=== PATIENT | female | born 1995 | race Caucasian/White ===

== ENCOUNTER 2016-09-21 14:35 | Emergency (ER) | payer OTHER ==
[2016-09-21] MEDS ORDERED: Morphine INJ* 2 MG/ML 1 ML CARPUJECT IV ONE (15:37)
[2016-09-21] MEDS ORDERED: NS 0.9% 1000 ML* 1,000 ML IV ONE (15:37)
[2016-09-21 15:50] LABS: Urine Bilirubin Negative (Negative); Urine Glucose Negative (Negative); Urine Nitrite Negative (Negative)
--- NOTE | 2016-09-21 16:05 | ED ---
Abdominal Pain/Female - HPI Summary HPI Summary: Patient arrives to ED 1 week after IUD placement with CC of intermittent lower abdominal cramping at 8/10. She states immediatley after placement she felt cramping and pain for 1 day. This dissipated by day 2 and patient resumed normal activities. She states she experienced 5 days of bleeding which seemed normal for her without pain or discomfort. Today, she arrives with severe cramps similar to the first day after IUD placement, but notes they are much worse. She denies STD history, current sexual history, abnormal vaginal discharge, fever or otherwise feeling ill. Patient has felt strings. This is her first IUD placement. Denies chance of . Denies any urinary symptoms or back pain. She is otherwise healthy, allergy to penicillins and takes no medications. She has a follow up appt with her OB 6 weeks from now, but states the earliest she can get in wouldn't be until 2 weeks d/t OB on vacation. - History of Current Complaint Chief Complaint: EDUrogenitalProblems Stated Complaint: IUD ISSUE / PELVIC PAIN Time Seen by Provider: 09/21/16 15:16 Hx Obtained From: Patient Hx Last Menstrual Period: 09/07/16 ?: No Onset/Duration: Sudden Onset Timing: Intermittent Episode Lasting - several minutes Severity Initially: Moderate Severity Currently: Severe Pain Intensity: 5 Pain Scale Used: 0-10 Numeric Location: Suprapubic Radiates: No Character: Sharp, Cramping Aggravating Factor(s): Nothing Alleviating Factor(s): Other: - movement Associated Signs and Symptoms: Positive: Vaginal Bleeding - previously, but this has since stopped - Risk Factors Ectopic Risk Factor: IUD Use Ovarian Torsion Risk Factor: Reproductive Age Allergies/Adverse Reactions: Allergies Allergy/AdvReac Type Severity Reaction Status Date / Time Penicillins Allergy See Comment Verified 02/03/15 16:36 PMH/Surg Hx/FS Hx/Imm Hx Previously Healthy: Yes Infectious Disease History: No Infectious Disease History: Denies: History Other Infectious Disease, Traveled Outside the [place] in Last 30 Days - Social History Occupation: Student Lives: With Family Alcohol Use: None Hx Substance Use: No Substance Use Type: Reports: None Hx Tobacco Use: No Smoking Status (MU): Never Smoked Tobacco Do You Chew or Dip Tobacco: No Have You Chewed or Dipped Tobacco in the LAST YEAR: No Review of Systems Constitutional: Negative Positive: Photophobia Cardiovascular: Negative Respiratory: Negative Positive: Abdominal Pain - suprapubic Positive: no symptoms reported, see HPI Musculoskeletal: Negative Skin: Negative Neurological: Negative All Other Systems Reviewed And Are Negative: Yes Physical Exam Triage Information Reviewed: Yes Vital Signs On Initial Exam: Initial Vitals Temp Pulse Resp BP Pulse Ox 98.4 F 74 12 127/87 100 09/21/16 14:36 09/21/16 14:36 09/21/16 14:36 09/21/16 14:36 09/21/16 14:36 Vital Signs Reviewed: Yes Appearance: Positive: Well-Appearing, No Pain Distress, Well-Nourished Skin: Positive: Warm, Skin Color Reflects Adequate Perfusion Eyes: Positive: Normal, EOMI Neck: Positive: Supple, Nontender, No Lymphadenopathy Respiratory/Lung Sounds: Positive: Clear to Auscultation, Breath Sounds Present Cardiovascular: Positive: Normal, RRR Abdomen Description: Positive: Other: - patient experienced severe sharp pain approximately 20 seconds after provider lightly palpated LLQ. while palpating, patient notes to "some discomfort," this only became severe after exam was finished. Pain was discrete at LLQ which did not radiate. Bowel Sounds: Positive: Present Musculoskeletal: Positive: Normal, Strength/ROM Intact Neurological: Positive: Sensory/Motor Intact, Alert, Oriented to Person Place, Time, Speech Normal Psychiatric: Positive: Normal, Affect/Mood Appropriate AVPU Assessment: Alert - Ale Coma Scale Best Eye Response: 4 - Spontaneous Best Motor Response: 6 - Obeys Commands Best Verbal Response: 5 - Oriented Coma Scale Total: 15 Diagnostics - Vital Signs Vital Signs Temp Pulse Resp BP Pulse Ox 09/21/16 15:19 97.9 F 69 21 109/60 98 09/21/16 14:36 98.4 F 74 12 127/87 100 - Laboratory Lab Results: Lab Results 09/21/16 Range/Units 15:20 Urine Color Yellow Urine Appearance Clear Urine pH 7.0 (5-9) Ur Specific [place] 1.009 L (1.010-1.030) Urine Protein Negative (Negative) Urine Ketones Negative (Negative) Urine Blood Negative (Negative) Urine Nitrate Negative (Negative) Urine Bilirubin Negative (Negative) Urine Urobilinogen Negative (Negative) Ur Leukocyte Esterase Negative (Negative) Urine Glucose Negative (Negative) Result Diagrams: 09/21/16 16:15 09/21/16 16:15 Lab Statement: Any lab studies that have been ordered have been reviewed, and results considered in the medical decision making process. Abdominal Pain Fem Course/Dx - Course Course Of Treatment: Patient arrives with moderate cramping 1 week after IUD placement. US revealed Mirena in appropriate place. UA was negative for infection. All labs WNL. No fever. Explained to patient cramping is very common with recent IUD placement and should be evaluated 6 weeks after insertion. Patient has follow up with OBGYN in 6 already scheduled. Explained possibility of PID. She notes she has no vaginal discharge, bleeding, odor or experiencing in fever. Provider ordered morphine for pain, mother called and stated she did not want patient to have morphine and to give her ibuprofen instead. Provider again spoke with patient, and d/t her age, it was my clinical decision making and the patients preference to have the medication. Patient agreed to toradol. Will follow up with OB. Ibuprofen as outpatient for pain control per patient. - Diagnoses Differential Diagnosis: Positive: Ectopic , Ovarian Cyst, Pelvic Inflammatory Disease, Urinary Tract Infection, Other - IUD complications Provider Diagnoses: Pain due to intrauterine contraceptive device (IUD) Images - Images Full Body (No Head): 1 - 10/10 pain on light palpation Discharge - Discharge Plan Condition: Stable Disposition: HOME Patient Education Materials: Intrauterine Device (GEN) Referrals: No Primary Care Phys,NOPCP [Primary Care Provider] - Additional Instructions: Take 600mg Iburprofen 3 times daily with meals for pain and inflammation. Follow up with your OBGYN. Call tomorrow and explain you were seen in ED. Ultrasound shows IUD in place. Cramping is very common after IUD placement. If you notice any worsening cramping, bleeding or develop a fever. Come back to ED.
[2016-09-21 16:31] LABS: Hematocrit 41 % (35-47); Hemoglobin 13.5 g/dl (12.0-16.0); Mean Corpuscular HGB Conc 34 g/dl (31-36); Mean Corpuscular Hemoglobin 28 pg (27-31); Mean Corpuscular Volume 83 fL (80-97); Mean Platelet Volume 7 um3 (7.4-10.4); Red Blood Count 4.91 10^6/ul (4.0-5.4); Red Cell Distribution Width 13 % (10.5-15); White Blood Count 10.3 10^3/ul (3.5-10.8)
[2016-09-21 16:59] LABS: ALT 10 U/L (7-52); AST 16 U/L (13-39); Albumin 4.3 g/dL (3.2-5.2); Alkaline Phosphatase 63 U/L (34-104); Anion Gap 3 mmol/L (2-11); BUN/Creatinine Ratio 15.9 (8-20); Blood Urea Nitrogen 11 mg/dL (6-24); C Reactive Protein 1.63 mg/L (< 5.00); CO2 Carbon Dioxide 28 mmol/L (22-32); Calcium 9.2 mg/dL (8.6-10.3); Chloride 104 mmol/L (101-111); Creatine Kinase 87 U/L (10-223); EGFR African American 138.1 (>60); EGFR Non-African American 107.4 (>60); Globulin 2.6 g/dL (2-4); Glucose 90 mg/dL (70-100); Potassium 3.6 mmol/L (3.5-5.0); Sodium 135 mmol/L (133-145); Total Protein 6.9 g/dL (6.4-8.9)
[2016-09-21] MEDS ORDERED: Ketorolac INJ* 30 MG/ML 1 ML VIAL IV PUSH ONE (17:08)
--- NOTE | 2016-09-21 17:38 | RAD ---
INDICATION: Intermittent left-sided pelvic pain one week after IUD placement COMPARISON: None. TECHNIQUE: Real-time transabdominal and transvaginal ultrasound examination of the female pelvis including grayscale and Doppler color flow imaging. FINDINGS: Uterus: The uterus is normal in size and echogenicity measuring 7.9 x 3.8 x 4.2 cm. The endometrial stripe is smooth and uniform measuring 1 cm in thickness. In the sagittal projection the lower shaft of the intrauterine device is appropriately positioned in the fundal height endometrium. There is more questionable identification of the "arms" of the intrauterine device positioned within the cornua. There is no definite evidence of perforation. Ovaries: The right and left ovary measure 3.7 x 2.3 x 2.3 cm and 2.8 x 1.5 x 1.9 cm, respectively. Normal arterial and venous waveforms are identified. Appearance is within normal limits for the patient's age. There is no free fluid in the cul-de-sac. IMPRESSION: No evidence of malposition or uterine perforation by the patient's intrauterine device in this otherwise normal and age-appropriate pelvic ultrasound.
[2016-09-21 18:25] VITALS: BP 115/73
== END 2016-09-21 18:19 | disposition home or self-care (01) ==
LOC: ED 14:35
DX: R10.30 Lower abdominal pain, unspecified (principal); H53.149 Visual discomfort, unspecified; Z97.5 Presence of (intrauterine) contraceptive device
CPT/HCPCS: 36415; 76830; 80053; 81003; 82550; 84702; 85025; 86140; 87491; 87591; 96361; 96374; 96375; 99283; J1885

== ENCOUNTER 2017-04-18 09:20 | Emergency (ER) | payer SELFPAY ==
[2017-04-18 10:02] VITALS: BP 105/68
--- NOTE | 2017-04-18 10:16 | UC ---
Throat Pain/Nasal Deo HPI - HPI Summary HPI Summary: Sore throat for 1 day - History of Current Complaint Chief Complaint: UCGeneralIllness Stated Complaint: SORE THROAT Time Seen by Provider: 04/18/17 10:15 Hx Obtained From: Patient Hx Last Menstrual Period: 03/28/17 ?: No Onset/Duration: Sudden Onset, Lasting Days - 1 Severity: Moderate Pain Intensity: 7 Pain Scale Used: 0-10 Numeric Cough: None - Allergies/Home Medications Allergies/Adverse Reactions: Allergies Allergy/AdvReac Type Severity Reaction Status Date / Time No Known Allergies Allergy Verified 04/18/17 09:53 PMH/Surg Hx/FS Hx/Imm Hx Previously Healthy: Yes - Surgical History Surgical History: None - Family History Known Family History: Positive: None - Social History Occupation: Employed Full-time Lives: With Family Alcohol Use: None Substance Use Type: None Smoking Status (MU): Never Smoked Tobacco Review of Systems Constitutional: Negative Skin: Negative Eyes: Negative ENT: Sore Throat, Ear Ache - right Respiratory: Negative Cardiovascular: Negative Gastrointestinal: Negative Genitourinary: Negative Motor: Negative Neurovascular: Negative Musculoskeletal: Negative Neurological: Negative Psychological: Negative Is Patient Immunocompromised?: No All Other Systems Reviewed And Are Negative: Yes Physical Exam Triage Information Reviewed: Yes Appearance: Well-Nourished, Ill-Appearing - mild, Pain Distress - mild Vital Signs: Initial Vital Signs Temp 98.5 F 04/18/17 09:53 Pulse 95 04/18/17 09:53 Resp 20 04/18/17 09:53 BP 105/68 04/18/17 09:53 Pulse Ox 100 04/18/17 09:53 Vital Signs Reviewed: Yes Eye Exam: Normal Eyes: Positive: Conjunctiva Clear ENT Exam: Normal ENT: Positive: Normal ENT inspection, Hearing grossly normal, Pharyngeal erythema, TMs normal. Negative: Nasal congestion, Nasal drainage, Tonsillar swelling, Tonsillar exudate, Trismus, Muffled/hoarse voice Dental Exam: Normal Neck exam: Normal Neck: Positive: Supple, Nontender, No Lymphadenopathy Respiratory Exam: Normal Respiratory: Positive: Chest non-tender, Lungs clear, Normal breath sounds, No respiratory distress, No accessory muscle use Cardiovascular Exam: Normal Cardiovascular: Positive: RRR, No Murmur, Pulses Normal, Brisk Capillary Refill Musculoskeletal Exam: Normal Musculoskeletal: Positive: Strength Intact, ROM Intact, No Edema Neurological Exam: Normal Neurological: Positive: Alert, Muscle Tone Normal Psychological Exam: Normal Skin Exam: Normal Diagnostics - Laboratory Diagnostic Studies Completed/Ordered: RST (+) Throat Pain/Nasal Course/Dx - Course Assessment/Plan: Amoxicillin, tylenol, ibuprofen follow with pcp prn, - Differential Dx/Diagnosis Differential Diagnosis/HQI/PQRI: Laryngitis, Mononucleosis, Pharyngitis, Sinusitis, URI Provider Diagnoses: Strep Pharyngitis Discharge - Discharge Plan Condition: Stable Disposition: HOME Prescriptions: Amoxicillin PO (*) [Amoxicillin 500 MG CAP*] 500 mg PO TID #30 cap Patient Education Materials: Strep Throat (ED), Ibuprofen (By mouth), Acetaminophen (By mouth) Forms: *Work Release Referrals: [facility] [place] [facility] [Outside] - If Needed
== END 2017-04-18 10:39 | disposition home or self-care (01) ==
LOC: UCEAST 09:20
DX: J02.0 Streptococcal pharyngitis (principal)
CPT/HCPCS: 87651; 99212; G0463

== ENCOUNTER 2019-07-03 11:20 | Emergency (ER) | payer BC ==
[2019-07-03 12:16] VITALS: BP 117/80
--- NOTE | 2019-07-03 12:31 | UC ---
Throat Pain/Nasal Deo HPI - HPI Summary HPI Summary: Patient is a 24yo female presenting with sore throat and R ear pain that began this morning. Denies nasal congestion. Denies L ear symptoms. Denies cough. Denies fever but notes "feeling cold." Denies ill contacts. States she took one of her fiance's left over amoxicillin tabs this morning from a previous illness. - History of Current Complaint Chief Complaint: UCGeneralIllness Stated Complaint: ST Hx Obtained From: Patient Hx Last Menstrual Period: 06/27/19 Onset/Duration: Sudden Onset, Lasting Hours Severity: Mild Pain Intensity: 3 Pain Scale Used: 0-10 Numeric - Allergies/Home Medications Allergies/Adverse Reactions: Allergies Allergy/AdvReac Type Severity Reaction Status Date / Time No Known Allergies Allergy Verified 07/03/19 12:16 Home Medications: Home Medications Acetaminophen [Acetaminophen Extra Strength] 1,000 mg PO Q4HR PRN 07/03/19 [ History Confirmed 07/03/19] PMH/Surg Hx/FS Hx/Imm Hx Previously Healthy: Yes - Surgical History Surgical History: None - Family History Known Family History: Positive: None, Non-Contributory - Social History Alcohol Use: Occasionally Substance Use Type: None Smoking Status (MU): Never Smoked Tobacco Review of Systems All Other Systems Reviewed And Are Negative: Yes Constitutional: Positive: Chills. Negative: Fever ENT: Positive: Sore Throat, Ear Ache - R ear. Negative: Nasal Discharge, Sinus Congestion Respiratory: Positive: Negative Cardiovascular: Positive: Negative Gastrointestinal: Positive: Negative Musculoskeletal: Positive: Negative Neurological: Positive: Negative Physical Exam Triage Information Reviewed: Yes Appearance: Well-Appearing, No Pain Distress, Well-Nourished Vital Signs: Initial Vital Signs Temp 99.2 F 07/03/19 12:11 Pulse 91 07/03/19 12:11 Resp 16 07/03/19 12:11 BP 117/80 07/03/19 12:11 Pulse Ox 100 07/03/19 12:11 Vital Signs Reviewed: Yes Eyes: Positive: Conjunctiva Clear ENT: Positive: Hearing grossly normal, Pharyngeal erythema, TMs normal, Tonsillar swelling, Tonsillar exudate - right tonsil, Uvula midline. Negative: Nasal congestion, Nasal drainage, TM bulging, TM dull, TM red, Trismus, Muffled voice, Hoarse voice Neck exam: Normal Neck: Positive: Supple, Nontender, Enlarged Nodes @ - right tonsillar Respiratory Exam: Normal Respiratory: Positive: Lungs clear, Normal breath sounds, No respiratory distress Cardiovascular Exam: Normal Cardiovascular: Positive: RRR Neurological: Positive: Alert Psychological: Positive: Age Appropriate Behavior Skin Exam: Normal Throat Pain/Nasal Course/Dx - Course Course Of Treatment: Patient rapid strep negative. I sent for culture given PE findings. Instructed her to continue with symptomatic treatment and not to take any more amoxicillin. Informed her that she would be notified with any positive results warranting treatment. Instructed to follow up with [facility] if symptoms persist. Patient voiced understanding and agreed with treatment plan. - Differential Dx/Diagnosis Differential Diagnosis/HQI/PQRI: Pharyngitis, Tonsillitis, URI Provider Diagnosis: Exudative pharyngitis, Acute pain of right ear Discharge ED - Sign-Out/Discharge Documenting (check all that apply): Patient Departure All imaging exams completed and their final reports reviewed: No Studies - Discharge Plan Condition: Stable Disposition: HOME Patient Education Materials: Pharyngitis (ED) Referrals: [facility] [Outside] - If Needed [facility] [place] [facility] [Outside] - If Needed Additional Instructions: As discussed, you tested negative for strep throat today. A throat culture has been sent and you will be notified with any results warranting treatment. You may take ibuprofen and/or tylenol as directed for fever and pain relief. You may use over the counter throat sprays or lozenges for symptomatic relief. Get plenty of rest and fluids. Follow up with your primary care provider or one of the referrals listed below if your symptoms do not resolve within 7 days. - Billing Disposition and Condition Condition: STABLE Disposition: Home
== END 2019-07-03 12:50 | disposition home or self-care (01) ==
LOC: UCCORT 11:20
DX: H92.01 Otalgia, right ear (principal); J02.9 Acute pharyngitis, unspecified; R09.81 Nasal congestion
CPT/HCPCS: 87070; 87651; 99211; G0463

== ENCOUNTER 2021-10-25 02:18 | Inpatient (IN) ==
[2021-10-25] MEDS ORDERED: Buffered Lidocaine 1% SYRIN 1 ml INTRADERM ONE ×2 (02:36→03:28)
[2021-10-25 04:23] LABS: Urine Benzodiazepine Screen None Detected (None Detect); Urine Cannabinoids Screen None Detected (None Detect); Urine Opiates Screen None Detected (None Detect)
[2021-10-25] MEDS ORDERED: Nalbuphine 10 MG/ML 1 ML VIAL IV PRN (15:56)
[2021-10-25] MEDS ORDERED: Promethazine INJ(RESTRICTED) 25 MG/ML 1 ml VIAL IV PRN (15:56)
[2021-10-25] MEDS ORDERED: Oxytocin in LR 20 UNITS/1,000 ML BAG IVPB SCH (16:00)
[2021-10-25 16:45] LABS: ABS Lymphocytes 1.7 10^3/ul (1.0-4.8); ABS Neutrophils 7.8 10^3/ul (1.5-7.7); Eosinophil % 0.3 %; Hematocrit 37 % (35-47); Hemoglobin 12.1 g/dL (12.0-16.0); Lymphocyte % 16.4 %; Mean Corpuscular HGB Conc 33 g/dL (31-36); Mean Corpuscular Hemoglobin 26 pg (27-31); Mean Corpuscular Volume 81 fL (80-97); Mean Platelet Volume 7.2 fL (7.4-10.4); Platelet Count 233 10^3/uL (150-450); Red Blood Count 4.59 10^6 /uL (3.70-4.87); Red Cell Distribution Width 16 % (10-15); White Blood Count 10.6 10^3/uL (3.5-10.8)
[2021-10-25] MEDS: Lactated Ringers 1000 ml BAG 1,000 ML IV ONE ×2 (16:55→20:40)
[2021-10-25] MEDS ORDERED: OBEPIDURAL (200 ML) 200 ML EPIDURAL ONE (20:22)
[2021-10-25] MEDS ORDERED: Lactated Ringers 1000 ml BAG 500 ML IV PRN ×2 (21:26)
[2021-10-25] MEDS ORDERED: EPHEDrine (Pressors) 50 MG/ML VIAL IV PUSH PRN ×2 (21:26)
[2021-10-25] MEDS ORDERED: Sodium Citrate/Citric Acid LIQ 15 ML UDC PO PRN (21:26)
[2021-10-25] MEDS ORDERED: Phenylephrine 40 mcg/mL 10mL (400mcg) SYRINGE IV PUSH PRN ×2 (21:26)
[2021-10-25] MEDS ORDERED: Lactated Ringers 1000 ml BAG 1,000 ML IV ONE (21:26)
[2021-10-25] MEDS ORDERED: Lactated Ringers 1000 ml BAG 1,000 ML IV SCH (22:00)
[2021-10-25] MEDS ORDERED: OBEPIDURAL (200 ML) 200 ML EPIDURAL SCH (22:00)
[2021-10-25 22:18] LABS: Urine Appearance Cloudy; Urine Bilirubin Negative (Negative); Urine Blood 3+ (Negative); Urine Color Yellow; Urine Glucose Negative (Negative); Urine Ketones 2+ (Negative); Urine Nitrite Negative (Negative); Urine Protein 2+(100 mg/dL) (Negative); Urine Specific Gravity 1.023 (1.002-1.030); Urine Urobilinogen Negative (Negative)
[2021-10-25 22:20] LABS: Urine Bacteria Absent (Absent); Urine Red Blood Cell 3+(>10/hpf) (Absent); Urine Squamous Epithelial Cell Present (Absent); Urine White Blood Cell 1+(6-10/hpf) (Absent)
[2021-10-25] MEDS ORDERED: Calcium Carb (TUMS) 500 mg CHEW TAB PO PRN (23:32)
[2021-10-26] MEDS ORDERED: Gentamicin ADULT per pharmacy 1 NOTE MISC FOLLOW UP PRN (04:02)
[2021-10-26] MEDS: Ampicillin ADVAN 2 GM in NS 0.9% 100 ml BAG 100 ML IVPB SCH ×4 (04:10→23:22)
[2021-10-26] MEDS ORDERED: Oxytocin in LR 20 UNITS/1,000 ML BAG IVPB SCH (04:24)
[2021-10-26] MEDS ORDERED: Gentamicin ADULT 350 MG in NS 0.9% 100 ml BAG 100 ML IVPB SCH (05:00)
[2021-10-26] MEDS: Witch Hazel PAD JAR TOPICAL PRN (08:00)
[2021-10-26] MEDS: Dibucaine 1% OINT 28.35 GM TUBE PR PRN (08:00)
[2021-10-27 07:19] LABS: ABS Eosinophils 0.1 10^3/ul (0-0.6); ABS Lymphocytes 1.9 10^3/ul (1.0-4.8); ABS Monocytes 0.8 10^3/ul (0-0.8); ABS Neutrophils 7.9 10^3/ul (1.5-7.7); Eosinophil % 0.5 %; Hematocrit 27 % (35-47); Hemoglobin 8.9 g/dL (12.0-16.0); Lymphocyte % 17.7 %; Mean Corpuscular HGB Conc 33 g/dL (31-36); Mean Corpuscular Hemoglobin 27 pg (27-31); Mean Corpuscular Volume 81 fL (80-97); Mean Platelet Volume 7.2 fL (7.4-10.4); Platelet Count 181 10^3/uL (150-450); Red Blood Count 3.34 10^6 /uL (3.70-4.87); Red Cell Distribution Width 17 % (10-15); White Blood Count 10.8 10^3/uL (3.5-10.8)
[2021-10-27] MEDS: Ampicillin ADVAN 2 GM in NS 0.9% 100 ml BAG 100 ML IVPB SCH (07:42)
[2021-10-27 07:52] LABS: eGFR CKD-EPI 124.5 (>60)
[2021-10-27] MEDS: Witch Hazel PAD JAR TOPICAL PRN (08:15)
[2021-10-27] MEDS: Dibucaine 1% OINT 28.35 GM TUBE PR PRN (08:15)
[2021-10-28] MEDS: Dibucaine 1% OINT 28.35 GM TUBE PR PRN (08:34)
[2021-10-28 09:59] VITALS: BP 111/60
== END 2021-10-28 13:45 | disposition home or self-care (01) | DRG 560 ==
LOC: MCHOBOUT 02:18 → MCHOB 02:53
PROVIDERS: ADMIT Advanced Practice Midwife; ATTEND Advanced Practice Midwife

== ENCOUNTER 2023-02-20 13:27 | Inpatient (IN) ==
[2023-02-20] MEDS ORDERED: Lactated Ringers 1000 ml BAG 1,000 ML IV ONE ×2 (14:03→15:46)
[2023-02-20 14:30] LABS: ABS Lymphocytes 1.7 10^3/uL (1.0-4.8); ABS Monocytes 0.8 10^3/uL (0.0-0.9); ABS Neutrophils 9.7 10^3/uL (1.5-7.6); Eosinophil % 0.2 %; Hematocrit 34.9 % (35-45); Hemoglobin 11.9 g/dL (11.5-14.3); Lymphocyte % 14.1 %; Mean Corpuscular Hemoglobin 26.9 pg (27-33); Mean Platelet Volume 7.1 fL (7.5-11.2); Platelet Count 238 10^3/uL (150-450); Red Blood Count 4.41 10^6/uL (3.63-4.92); Red Cell Distribution Width 15.3 % (12-17); White Blood Count 12.3 10^3/uL (3.8-11.8)
[2023-02-20 14:42] LABS: Urine Benzodiazepine Screen None Detected (None Detect); Urine Cannabinoids Screen None Detected (None Detect); Urine Opiates Screen None Detected (None Detect)
[2023-02-20] MEDS ORDERED: OBEPIDURAL (200 ML) 200 ML EPIDURAL ONE (14:55)
[2023-02-20] MEDS ORDERED: Lidocaine 1% w EPI 1:200,000 SDV 30 ML VIAL ONE (14:56)
[2023-02-20] MEDS ORDERED: Phenylephrine 40 mcg/mL 10mL (400mcg) SYRINGE IV PUSH PRN ×2 (15:46)
[2023-02-20] MEDS ORDERED: Sodium Citrate/Citric Acid LIQ 15 ML UDC PO PRN (15:46)
[2023-02-20] MEDS ORDERED: OBEPIDURAL (200 ML) 200 ML EPIDURAL SCH (16:00)
[2023-02-20] MEDS ORDERED: Lactated Ringers 1000 ml BAG 1,000 ML IV SCH ×2 (16:00→21:00)
[2023-02-20 17:03] LABS: Urine Appearance Cloudy; Urine Bilirubin Negative (Negative); Urine Blood 3+ (Negative); Urine Color Yellow; Urine Glucose Negative (Negative); Urine Ketones 2+ (Negative); Urine Nitrite Negative (Negative); Urine Protein 1+(30 mg/dL) (Negative); Urine Specific Gravity 1.014 (1.002-1.030); Urine Urobilinogen Negative (Negative)
[2023-02-20 17:10] LABS: Urine Bacteria Absent (Absent); Urine Red Blood Cell 3+(>10/hpf) (Absent); Urine Squamous Epithelial Cell Present (Absent); Urine White Blood Cell Trace(0-5/hpf) (Absent)
[2023-02-20] MEDS ORDERED: Oxytocin in LR 20,000 MILLI.UNIT/1,000 ML BAG IV ONE (19:58)
[2023-02-20] MEDS ORDERED: Dibucaine 1% OINT 28.35 GM TUBE PR PRN (20:19)
[2023-02-20] MEDS ORDERED: Measles, Mumps,Rubella VACC 0.5 ML/VIAL SUBCUT ONE (20:19)
[2023-02-20] MEDS ORDERED: Witch Hazel PAD JAR TOPICAL PRN (20:19)
[2023-02-20] MEDS ORDERED: Oxytocin in LR 20,000 MILLI.UNIT/1,000 ML BAG IV SCH (20:20)
[2023-02-21 07:28] LABS: ABS Lymphocytes 2.1 10^3/uL (1.0-4.8); ABS Monocytes 1.1 10^3/uL (0.0-0.9); ABS Neutrophils 9.9 10^3/uL (1.5-7.6); Eosinophil % 0.4 %; Hematocrit 29.7 % (35-45); Hemoglobin 10.2 g/dL (11.5-14.3); Mean Corpuscular Hemoglobin 27.4 pg (27-33); Mean Corpuscular Hgb Conc 34.3 g/dL (31-36); Mean Corpuscular Volume 79.9 fL (80-97); Mean Platelet Volume 6.9 fL (7.5-11.2); Platelet Count 207 10^3/uL (150-450); Red Blood Count 3.71 10^6/uL (3.63-4.92); Red Cell Distribution Width 15.4 % (12-17); White Blood Count 13.2 10^3/uL (3.8-11.8)
[2023-02-21] MEDS ORDERED: Measles, Mumps,Rubella VACC 0.5 ML/VIAL SUBCUT ONE (17:00)
[2023-02-22 07:50] VITALS: BP 103/65
== END 2023-02-22 09:46 | disposition home or self-care (01) | DRG 560 ==
LOC: MCHOBOUT 13:27 → MCHOB 14:03
PROVIDERS: ADMIT Midwife; ATTEND Midwife